=== PATIENT | male | born 1980 | race Two or more races ===

== ENCOUNTER 2024-06-23 15:04 | Emergency (ER) | payer OTHER ==
[~2024-06-23] VITALS: Ht 170.2 cm; Wt 72.6 kg
[2024-06-23] MEDS ORDERED: RAMIPRIL2.5 MG PO (15:38)
[2024-06-23 18:14] LABS: HEMATOCRIT 40.3 % (39.0-48.0); HEMOGLOBIN 14.4 g/dL (13-16.00); MEAN CELL VOLUME 89.2 fL (80.0-100.00); MEAN CORPUSCULAR HEMOGLOBIN 31.9 pg (27.00-32.0); MEAN CORPUSCULAR HGB CONC 35.8 g/dl (32.0-36.0); PLATELET COUNT 182 K/uL (150-450); RED BLOOD COUNT 4.52 M/uL (4.00-6.00); RED CELL DISTRIBUTION WIDTH 12.7 % (11.5-14.5)
== END 2024-06-23 20:34 | disposition home or self-care (01) ==
LOC: ER 15:06
PROVIDERS: General Practice
DX: B34.9 Viral infection, unspecified (principal); Z20.822 Contact with and (suspected) exposure to COVID-19

== ENCOUNTER 2025-02-09 22:35 | Emergency (ER) | payer OTHER ==
[~2025-02-09] VITALS: Ht 167.6 cm; Wt 72.6 kg
[~2025-02-09 22:35] MED LIST: RAMIPRIL2.5 MG PO
[2025-02-09 23:12] VITALS: BP 134/84; O2SAT 98
[2025-02-10] MEDS ORDERED: ORPHENADRINE CITRATE 30 MG/ML AMPUL IM STA (03:41)
[2025-02-10] MEDS ORDERED: KETOROLAC TROMETHAMINE 60 MG VIAL IM STA (03:41)
[2025-02-10] MEDS ORDERED: DEXAMETHASONE SODIUM PHOSPHATE 4 MG/ML VIAL IM STA (03:42)
[2025-02-10] MEDS ORDERED: ORPHENADRINE CITRATE 30 MG/ML AMPUL ONE (04:07)
[2025-02-10] MEDS ORDERED: KETOROLAC TROMETHAMINE 60 MG VIAL IM ONE (04:07)
[2025-02-10] MEDS ORDERED: DEXAMETHASONE SODIUM PHOSPHATE 4 MG/ML VIAL ONE (04:07)
== END 2025-02-10 05:30 | disposition home or self-care (01) ==
LOC: ER 22:36
DX: G24.3 Spasmodic torticollis (principal); R07.89 Other chest pain; M51.369 Other intervertebral disc degeneration, lumbar region without mention of lumbar back pain or lower extremity pain; I10 Essential (primary) hypertension

== ENCOUNTER 2025-03-25 19:49 | Emergency (ER) | payer OTHER ==
[~2025-03-25] VITALS: Ht 193 cm; Wt 72.6 kg
[2025-03-25] MEDS ORDERED: KETOROLAC TROMETHAMINE 60 MG VIAL IM STA (20:52)
[2025-03-25] MEDS ORDERED: ACETAMINOPHEN 500 MG GEL..CAP PO STA (20:54)
[2025-03-25] MEDS ORDERED: KETOROLAC TROMETHAMINE 60 MG VIAL IM ONE (21:23)
[2025-03-25] MEDS ORDERED: ACETAMINOPHEN 500 MG GEL..CAP PO ONE (21:23)
== END 2025-03-25 21:58 | disposition home or self-care (01) ==
LOC: ER 19:58
DX: K40.90 Unilateral inguinal hernia, without obstruction or gangrene, not specified as recurrent (principal)